=== PATIENT | male | born 1985 | race Caucasian/White ===

== ENCOUNTER 2017-10-23 02:17 | Emergency (ER) | payer MEDICAID ==
[~2017-10-23] VITALS: Ht 180.3 cm; Wt 86.0 kg
[2017-10-23 04:00] VITALS: BP 135/96
== END 2017-10-23 05:11 | disposition home or self-care (01) ==
LOC: EMS 02:19
DX: T81.89XA Other complications of procedures, not elsewhere classified, initial encounter (principal); L97.529 Non-pressure chronic ulcer of other part of left foot with unspecified severity; L03.116 Cellulitis of left lower limb; F17.200 Nicotine dependence, unspecified, uncomplicated
CPT/HCPCS: 99283